=== PATIENT | male | born 2000 | race Caucasian/White ===

== ENCOUNTER 2022-05-14 20:38 | Emergency (ER) | payer OTHER ==
[2022-05-14 21:34] VITALS: BP 125/82
[2022-05-14 22:00] VITALS: BP 130/78
[2022-05-14 22:31] VITALS: BP 121/65
[2022-05-14 23:01] VITALS: BP 101/57
[2022-05-14] MEDS ORDERED: AMOXICILLIN500 MG PO (23:02)
[2022-05-14] MEDS ORDERED: NAPROXEN500 MG PO (23:02)
[2022-05-14 23:11] VITALS: BP 101/57
== END 2022-05-14 23:18 | disposition home or self-care (01) ==
LOC: ED 20:38
DX: J02.9 Acute pharyngitis, unspecified (principal); Z20.822 Contact with and (suspected) exposure to COVID-19

== ENCOUNTER 2024-04-26 07:37 | Emergency (ER) | payer SELFPAY ==
[~2024-04-26] VITALS: Ht 182.9 cm; Wt 101.2 kg
[~2024-04-26 07:37] MED LIST: AMOXICILLIN500 MG PO; NAPROXEN500 MG PO
[2024-04-26 07:45] VITALS: BP 169/94
[2024-04-26] MEDS ORDERED: LIDOcaine HCl 1% (Local Anesth.) 20 ML VIAL IM STA (07:51)
[2024-04-26] MEDS ORDERED: cefTRIAXone SODIUM 1 GM/VIAL SDV IM ONE (07:55)
[2024-04-26] MEDS ORDERED: DOXYCYCL HYC100 M4 PO (07:58)
[2024-04-26 08:10] LABS: URINE BILIRUBIN - DIPSTICK Negative (NEGATIVE); URINE BLOOD DIPSTICK Negative (NEGATIVE); URINE GLUCOSE - DIPSTICK Negative (NEGATIVE); URINE KETONE Negative (NEGATIVE); URINE NITRITE - DIPSTICK Negative (Negative); URINE PROTEIN - DIPSTICK Trace mg/dL (NEG-TRACE); URINE SPECIFIC GRAVITY >=1.030
[2024-04-26 08:23] LABS: URINE COLOR Yellow
[2024-04-26 08:24] LABS: URINE LEUK ESTERASE Negative (NEGATIVE)
[2024-04-26 08:49] VITALS: BP 169/94
== END 2024-04-26 08:53 | disposition home or self-care (01) | DRG 951 ==
LOC: ED 07:37
PROVIDERS: Family Medicine
DX: Z77.21 Contact with and (suspected) exposure to potentially hazardous body fluids (principal); Z72.0 Tobacco use

== ENCOUNTER 2024-06-14 11:26 | Emergency (ER) | payer SELFPAY ==
[~2024-06-14] VITALS: Ht 182.9 cm; Wt 95.0 kg
[~2024-06-14 11:26] MED LIST changes: +DOXYCYCL HYC100 M4 PO
[2024-06-14 11:49] VITALS: BP 137/90
[2024-06-14 13:08] VITALS: BP 136/87
[2024-06-14 13:16] VITALS: BP 115/83
[2024-06-14 13:46] VITALS: BP 116/80
[2024-06-14 13:57] VITALS: BP 116/80
== END 2024-06-14 14:02 | disposition home or self-care (01) | DRG 951 ==
LOC: ED 11:26
DX: Z09 Encounter for follow-up examination after completed treatment for conditions other than malignant neoplasm (principal)